=== PATIENT | male | born 1945 | race African-American/Black ===

== ENCOUNTER 2021-02-21 09:50 | Inpatient (IN) | payer MEDICARE, OTHER ==
[~2021-02-21] VITALS: Ht 193 cm; Wt 78.9 kg
[2021-02-21] MEDS ORDERED: IOHEXOL-350 100 ML BOTTLE ONE (10:17)
[2021-02-21 10:53] LABS: BASOPHILS % 1.3 % (0.0-2.0); EOSINOPHILS % 2.7 % (0.0-5.0); HEMATOCRIT. 40.1 % (42.0-52.0); HEMOGLOBIN. 13.2 g/dL (14.0-18.0); LYMPHOCYTES % 34.7 % (20.0-50.0); MEAN CORPUSCULAR VOLUME 79.1 fL (80.0-94.0); MEAN PLATELET VOLUME 9.2 fl (7.4-10.4); MONOCYTES % 7.2 % (2.0-8.0); NEUTROPHILS % 54.1 % (40.0-76.0); PLATELET 141 x1000/uL (130-400); RED BLOOD CELL COUNT 5.07 mill/uL (4.7-6.1); RED CELL DISTRIBUTION WIDTH 15.5 % (11.6-14.6)
[2021-02-21 11:00] LABS: CHLORIDE 106 mEq/L (98-107)
[2021-02-21] MEDS ORDERED: ASPIRIN 325MG EC TABLET PO ONE (11:00)
[2021-02-21] MEDS ORDERED: ONDANSETRON HCL 4MG/2ML INJ IV ONE (11:00)
[2021-02-21 11:06] LABS: ETHANOL BLOOD < 10 mg/dL
[2021-02-21 11:08] LABS: LDL CHOLESTEROL 67 mg/dL (5-100)
[2021-02-21 11:13] LABS: INR 1.1; PROTHROMBIN TIME 11.7 sec (9.6-11.0)
[2021-02-21] MEDS ORDERED: POTASSIUM CHLORIDE 20MEQ TABLET SR PO ONE (11:15)
[2021-02-21] MEDS ORDERED: DOCUSATE SODIUM 100MG CAPSULE PO PRN (13:30)
[2021-02-21] MEDS ORDERED: MAGNESIUM/ALUMINUM HYDROXIDE/SIMETHICONE 30ML UDC PO PRN (13:30)
[2021-02-21] MEDS ORDERED: ACETAMINOPHEN 325MG TABLET PO PRN (13:30)
[2021-02-21] MEDS ORDERED: NA PHOS,M-B/NA PHOS,DI-BA ENEMA 118ML PR PRN (13:30)
[2021-02-21] MEDS ORDERED: ONDANSETRON HCL 4MG/2ML INJ IV PRN (13:30)
[2021-02-21] MEDS ORDERED: GUAIFENESIN 200MG/10ML SUGAR FREE UDC PO PRN (13:30)
[2021-02-21 15:55] LABS: CLARITY URINE CLEAR (CLEAR); COLOR URINE YELLOW (YELLOW); KETONES URINE NEGATIVE (NEGATIVE); LEUKOCYTE ESTERASE URINE NEGATIVE (NEGATIVE); NITRITE URINE NEGATIVE (NEGATIVE); OCCULT BLOOD URINE NEGATIVE (NEGATIVE); PROTEIN URINE NEGATIVE (NEGATIVE); SPECIFIC GRAVITY URINE 1.078 (1.005-1.030)
[2021-02-21 16:47] LABS: *AMPHETAMINES SCREEN URINE NEGATIVE (NEGATIVE); *BARBITURATES SCREEN URINE NEGATIVE (NEGATIVE)
[2021-02-21 16:48] LABS: *BENZODIAZEPINES SCREEN URINE NEGATIVE (NEGATIVE); *COCAINE SCREEN URINE NEGATIVE (NEGATIVE); CANNABINOID URINE SCREEN NEGATIVE (NEGATIVE); OPIATES URINE SCREEN NEGATIVE (NEGATIVE); PHENCYCLIDINE URINE SCREEN NEGATIVE (NEGATIVE)
[2021-02-21 16:49] LABS: METHADONE URINE SCREEN NEGATIVE (NEGATIVE)
[2021-02-21 19:00] VITALS: BP 154/86
[2021-02-21 20:00] VITALS: BP_SYST 154; BP_SYST 180; BP_DIAS 86; BP_DIAS 98
[2021-02-21] MEDS ORDERED: DEXTROSE 50% WATER 50ML SYRINGE IV PRN (20:00)
[2021-02-21] MEDS: BLOOD SUGAR DIAGNOSTIC STRIP TEST SCH (20:31)
[2021-02-21] MEDS: INSULIN LISPRO 100 UNITS/ML SUBCUT SCH (20:31)
[2021-02-22] VITALS: BP 179/60
[2021-02-22] MEDS: CLONIDINE 0.1MG TABLET PO PRN (00:28)
[2021-02-22 04:00] VITALS: BP 141/80
[2021-02-22] MEDS: INSULIN LISPRO 100 UNITS/ML SUBCUT SCH ×4 (06:35→20:46)
[2021-02-22] MEDS: BLOOD SUGAR DIAGNOSTIC STRIP TEST SCH ×4 (06:35→20:46)
[2021-02-22 08:00] VITALS: BP 155/85
[2021-02-22 08:23] LABS: CHLORIDE 106 mEq/L (98-107)
[2021-02-22 08:40] LABS: BASOPHILS % 2.3 % (0.0-2.0); EOSINOPHILS % 3.2 % (0.0-5.0); HEMATOCRIT. 40.1 % (42.0-52.0); HEMOGLOBIN. 13.2 g/dL (14.0-18.0); LYMPHOCYTES % 46.6 % (20.0-50.0); MEAN CORPUSCULAR HEMOGLOBIN 25.9 pg (28.0-32.0); MEAN CORPUSCULAR VOLUME 78.9 fL (80.0-94.0); MEAN PLATELET VOLUME 9.5 fl (7.4-10.4); MONOCYTES % 6.4 % (2.0-8.0); NEUTROPHILS % 41.5 % (40.0-76.0); PLATELET 145 x1000/uL (130-400); RED BLOOD CELL COUNT 5.08 mill/uL (4.7-6.1); RED CELL DISTRIBUTION WIDTH 15.3 % (11.6-14.6)
[2021-02-22] MEDS: AMLODIPINE 10MG TABLET PO SCH (09:33)
[2021-02-22] MEDS: ASPIRIN 81MG EC TABLET PO SCH (09:33)
[2021-02-22] MEDS: ENOXAPARIN 40MG/0.4ML SYR SUBCUT SCH (11:58)
[2021-02-22] MEDS: LOSARTAN POTASSIUM 25 MG TABLET PO SCH (11:58)
[2021-02-22 12:00] VITALS: BP 183/83
[2021-02-22 16:00] VITALS: BP 160/76
[2021-02-22 20:00] VITALS: BP 161/79
[2021-02-23] VITALS: BP 163/84
[2021-02-23 04:00] VITALS: BP 155/80
[2021-02-23] MEDS: BLOOD SUGAR DIAGNOSTIC STRIP TEST SCH ×4 (06:21→21:38)
[2021-02-23] MEDS: INSULIN LISPRO 100 UNITS/ML SUBCUT SCH ×4 (06:22→21:00)
[2021-02-23] MEDS: LOSARTAN POTASSIUM 25 MG TABLET PO SCH (08:58)
[2021-02-23] MEDS: ASPIRIN 81MG EC TABLET PO SCH (08:58)
[2021-02-23] MEDS: AMLODIPINE 10MG TABLET PO SCH (09:01)
[2021-02-23 12:00] VITALS: BP 141/68
[2021-02-23] MEDS: HYDRALAZINE HCL 10MG TABLET PO SCH ×2 (14:20→22:01)
[2021-02-23] MEDS: ENOXAPARIN 40MG/0.4ML SYR SUBCUT SCH (14:20)
[2021-02-23 16:00] VITALS: BP 156/75
[2021-02-23 20:00] VITALS: BP_SYST 133; BP_SYST 163; BP_DIAS 111; BP_DIAS 77
[2021-02-24] VITALS: BP 158/76
[2021-02-24 04:00] VITALS: BP 152/76
[2021-02-24] MEDS: INSULIN LISPRO 100 UNITS/ML SUBCUT SCH ×4 (06:37→20:20)
[2021-02-24] MEDS: BLOOD SUGAR DIAGNOSTIC STRIP TEST SCH ×4 (06:37→20:19)
[2021-02-24] MEDS: HYDRALAZINE HCL 10MG TABLET PO SCH ×3 (06:43→21:54)
[2021-02-24 08:00] VITALS: BP 167/84
[2021-02-24] MEDS: AMLODIPINE 10MG TABLET PO SCH (08:27)
[2021-02-24] MEDS: LOSARTAN POTASSIUM 50 MG TABLET PO SCH (08:27)
[2021-02-24] MEDS: ASPIRIN 81MG EC TABLET PO SCH (08:27)
[2021-02-24] MEDS: DEXT 5%/0.9% NACL 1,000 ML IV SCH ×2 (10:26→23:06)
[2021-02-24 12:00] VITALS: BP 139/73
[2021-02-24] MEDS: ENOXAPARIN 40MG/0.4ML SYR SUBCUT SCH (12:07)
[2021-02-24 16:00] VITALS: BP 150/75
[2021-02-24 20:00] VITALS: BP 167/80
[2021-02-25] VITALS: BP 163/65
[2021-02-25] MEDS: CLONIDINE 0.1MG TABLET PO PRN (01:40)
[2021-02-25 04:00] VITALS: BP 118/58
[2021-02-25] MEDS: HYDRALAZINE HCL 10MG TABLET PO SCH ×3 (06:00→21:13)
[2021-02-25] MEDS: BLOOD SUGAR DIAGNOSTIC STRIP TEST SCH ×4 (06:08→20:18)
[2021-02-25] MEDS: INSULIN LISPRO 100 UNITS/ML SUBCUT SCH ×4 (06:13→20:18)
[2021-02-25 08:00] VITALS: BP 115/60
[2021-02-25 08:21] LABS: BASOPHILS % 0.7 % (0.0-2.0); EOSINOPHILS % 1.9 % (0.0-5.0); HEMOGLOBIN. 13.6 g/dL (14.0-18.0); LYMPHOCYTES % 29.2 % (20.0-50.0); MEAN CORPUSCULAR HEMOGLOBIN 26.4 pg (28.0-32.0); MEAN CORPUSCULAR VOLUME 79.8 fL (80.0-94.0); MEAN PLATELET VOLUME 8.9 fl (7.4-10.4); MONOCYTES % 9.2 % (2.0-8.0); PLATELET 131 x1000/uL (130-400); RED BLOOD CELL COUNT 5.14 mill/uL (4.7-6.1); RED CELL DISTRIBUTION WIDTH 15.3 % (11.6-14.6)
[2021-02-25 08:35] LABS: CHLORIDE 109 mEq/L (98-107)
[2021-02-25] MEDS: LOSARTAN POTASSIUM 50 MG TABLET PO SCH (09:44)
[2021-02-25] MEDS: ASPIRIN 81MG EC TABLET PO SCH (09:44)
[2021-02-25] MEDS: AMLODIPINE 10MG TABLET PO SCH (09:44)
[2021-02-25 12:00] VITALS: BP 131/68
[2021-02-25] MEDS: ENOXAPARIN 40MG/0.4ML SYR SUBCUT SCH (13:58)
[2021-02-25] MEDS: DEXT 5%/0.9% NACL 1,000 ML IV SCH (14:06)
[2021-02-25 16:00] VITALS: BP 171/73
[2021-02-25 20:00] VITALS: BP 158/68
[2021-02-26] VITALS (7 sets, daily range): BP systolic 129–182; BP diastolic 73–87
[2021-02-26] MEDS: CLONIDINE 0.1MG TABLET PO PRN ×3 (00:15→22:59)
[2021-02-26] MEDS: DEXT 5%/0.9% NACL 1,000 ML IV SCH ×2 (04:33→09:20)
[2021-02-26] MEDS: HYDRALAZINE HCL 10MG TABLET PO SCH ×3 (05:09→20:57)
[2021-02-26] MEDS: BLOOD SUGAR DIAGNOSTIC STRIP TEST SCH ×4 (05:46→20:53)
[2021-02-26] MEDS: INSULIN LISPRO 100 UNITS/ML SUBCUT SCH ×4 (06:18→20:53)
[2021-02-26] MEDS: ASPIRIN 81MG EC TABLET PO SCH (08:44)
[2021-02-26] MEDS: LOSARTAN POTASSIUM 50 MG TABLET PO SCH (08:44)
[2021-02-26] MEDS: AMLODIPINE 10MG TABLET PO SCH (08:44)
[2021-02-26] MEDS: ENOXAPARIN 40MG/0.4ML SYR SUBCUT SCH (12:56)
[2021-02-27] VITALS: BP 161/89
[2021-02-27 04:00] VITALS: BP 153/71
[2021-02-27] MEDS: BLOOD SUGAR DIAGNOSTIC STRIP TEST SCH ×2 (06:02→11:15)
[2021-02-27] MEDS: HYDRALAZINE HCL 10MG TABLET PO SCH (06:02)
[2021-02-27] MEDS: INSULIN LISPRO 100 UNITS/ML SUBCUT SCH ×2 (06:20→11:15)
[2021-02-27 08:00] VITALS: BP 160/72
[2021-02-27] MEDS: DEXT 5%/0.9% NACL 1,000 ML IV SCH (08:07)
[2021-02-27] MEDS: ASPIRIN 81MG EC TABLET PO SCH (08:07)
[2021-02-27] MEDS: LOSARTAN POTASSIUM 50 MG TABLET PO SCH (08:07)
[2021-02-27] MEDS: AMLODIPINE 10MG TABLET PO SCH (08:07)
[2021-02-27 12:00] VITALS: BP 161/70
[2021-02-27] MEDS: ENOXAPARIN 40MG/0.4ML SYR SUBCUT SCH (12:00)
[2021-02-27] MEDS: CLONIDINE 0.1MG TABLET PO PRN (12:22)
[2021-02-27] MEDS ORDERED: HYDRALAZINE HCL 25MG TABLET PO SCH (14:00)
[2021-02-28] MEDS ORDERED: LOSARTAN POTASSIUM 100 MG TABLET PO SCH (09:00)
== END 2021-02-27 14:05 | DRG 65 ==
LOC: ER 10:03 → 7EST 11:20 → EDBEDREQSVC 14:36 → ENRESERV 15:57 → 7EST 17:42
PROVIDERS: ADMIT Hospitalist; ATTEND Hospitalist
PROC: 4A10X4Z Monitoring of Central Nervous Electrical Activity, External Approach (ICD-10-PCS; principal; 2021-02-22)
DX: I63.9 Cerebral infarction, unspecified (principal); E44.1 Mild protein-calorie malnutrition; G81.94 Hemiplegia, unspecified affecting left nondominant side; R47.81 Slurred speech; E87.6 Hypokalemia; E11.9 Type 2 diabetes mellitus without complications; F17.200 Nicotine dependence, unspecified, uncomplicated; I10 Essential (primary) hypertension; R13.10 Dysphagia, unspecified; R29.704 NIHSS score 4; Z68.21 Body mass index [BMI] 21.0-21.9, adult
CPT/HCPCS: 36415; 70496; 70498; 70551; 71045; 80053; 80305; 80320; 81003; 82962; 83036; 83721; 84484; 85025; 92610; 93005; 93970; 95816; 97162; 97166; 97530; 99291; J1650; J1815; J2405; J7042; Q9967; G0480

== ENCOUNTER 2021-09-20 13:48 | Emergency (ER) | payer MEDICARE, OTHER, MEDICAID ==
[~2021-09-20] VITALS: Ht 193 cm; Wt 96.0 kg
[~2021-09-20 13:48] MED LIST: ACET650T37 MT; AMLO10TA80 MT; ASPI-1406 MT; DOCU-150 MT; HYDR-4134 PO; INSU100V3 SUBCUT; LOSA100T32 MT; MULT-230 MT; SENN-178 PO
[2021-09-20 16:58] LABS: BASOPHILS % 1.5 % (0.0-2.0); HEMATOCRIT. 41.7 % (42.0-52.0); HEMOGLOBIN. 13.6 g/dL (14.0-18.0); LYMPHOCYTES % 27.7 % (20.0-50.0); MEAN CORPUSCULAR HEMOGLOBIN 26.3 pg (28.0-32.0); MEAN CORPUSCULAR VOLUME 80.9 fL (80.0-94.0); MONOCYTES % 4.5 % (2.0-8.0); NEUTROPHILS % 62.3 % (40.0-76.0); PLATELET 224 x1000/uL (130-400); RED BLOOD CELL COUNT 5.15 mill/uL (4.7-6.1); RED CELL DISTRIBUTION WIDTH 14.6 % (11.6-14.6)
[2021-09-20 17:05] LABS: CHLORIDE 105 mEq/L (98-107)
[2021-09-20] MEDS ORDERED: PHEN51CR24 TP (17:39)
[2021-09-20] MEDS ORDERED: LACT1CAP78 MT (17:39)
[2021-09-20] MEDS ORDERED: POLY17PO3 MT (17:39)
[2021-09-20 21:25] VITALS: BP 156/85
== END 2021-09-20 23:13 | disposition home or self-care (01) ==
LOC: ER 13:48
DX: K62.89 Other specified diseases of anus and rectum (principal); I10 Essential (primary) hypertension; E11.9 Type 2 diabetes mellitus without complications; Z86.73 Personal history of transient ischemic attack (TIA), and cerebral infarction without residual deficits; Z79.4 Long term (current) use of insulin; Z99.3 Dependence on wheelchair; Z79.82 Long term (current) use of aspirin
CPT/HCPCS: 36415; 71045; 80053; 83880; 84484; 85025; 93005; 99285

== ENCOUNTER 2021-12-04 12:18 | Emergency (ER) | payer MEDICARE, MEDICAID ==
[~2021-12-04] VITALS: Ht 182.9 cm; Wt 78.0 kg
[~2021-12-04 12:18] MED LIST changes: +LACT1CAP78 MT; +PHEN51CR24 TP; +POLY17PO3 MT
[2021-12-04] MEDS ORDERED: ACETAMINOPHEN 325MG TABLET PO STA (13:04)
[2021-12-04] MEDS ORDERED: SODIUM CHLORIDE 0.9% 1,000 ML IV ONE (13:15)
[2021-12-04 13:32] LABS: HEMATOCRIT. 39.2 % (42.0-52.0); HEMOGLOBIN. 13.2 g/dL (14.0-18.0); MEAN CORPUSCULAR VOLUME 80.6 fL (80.0-94.0); MEAN PLATELET VOLUME 8.9 fl (7.4-10.4); PLATELET 174 x1000/uL (130-400); RED BLOOD CELL COUNT 4.87 mill/uL (4.7-6.1); RED CELL DISTRIBUTION WIDTH 16.3 % (11.6-14.6)
[2021-12-04 13:44] LABS: CHLORIDE 102 mEq/L (98-107)
[2021-12-04 13:53] LABS: CREATINE KINASE 392 IU/L (39-308); PLATELET ESTIMATE NORMAL
[2021-12-04] MEDS ORDERED: POTASSIUM CHLORIDE 20MEQ TABLET SR PO NR (15:00)
[2021-12-04 15:56] LABS: CLARITY URINE TURBID (CLEAR); COLOR URINE YELLOW (YELLOW); KETONES URINE NEGATIVE (NEGATIVE); LEUKOCYTE ESTERASE URINE 3+ (NEGATIVE); NITRITE URINE NEGATIVE (NEGATIVE); OCCULT BLOOD URINE 3+ (NEGATIVE); PH URINE 7.5 (4.5-8.0); PROTEIN URINE 2+ (NEGATIVE); SPECIFIC GRAVITY URINE 1.014 (1.005-1.030)
[2021-12-04 18:03] LABS: CLARITY URINE CLOUDY (CLEAR); COLOR URINE ORANGE (YELLOW); KETONES URINE NEGATIVE (NEGATIVE); LEUKOCYTE ESTERASE URINE 1+ (NEGATIVE); NITRITE URINE NEGATIVE (NEGATIVE); OCCULT BLOOD URINE 3+ (NEGATIVE); PROTEIN URINE 1+ (NEGATIVE); SPECIFIC GRAVITY URINE 1.013 (1.005-1.030)
[2021-12-04] MEDS ORDERED: ACETAMINOPHEN 325MG TABLET PO NR (18:15)
[2021-12-04] MEDS ORDERED: CLONIDINE 0.1MG TABLET PO ONE (18:30)
[2021-12-04] MEDS ORDERED: IBUP-2028 MT (19:02)
[2021-12-04] MEDS ORDERED: CEPH500T MT (19:02)
[2021-12-04 22:30] VITALS: BP 150/70
== END 2021-12-04 23:46 | disposition home or self-care (01) ==
LOC: ER 12:52
DX: M54.50 Low back pain, unspecified (principal); N39.0 Urinary tract infection, site not specified; E11.9 Type 2 diabetes mellitus without complications; I10 Essential (primary) hypertension; Z79.899 Other long term (current) drug therapy; Z86.73 Personal history of transient ischemic attack (TIA), and cerebral infarction without residual deficits
CPT/HCPCS: 96360; 96361; 99285; J7030; 36415; 72170; 80053; 81003; 82550; 85025; 87077; 87186; A4315

== ENCOUNTER 2022-08-16 12:38 | Inpatient (IN) | payer OTHER, MEDICAID ==
[~2022-08-16] VITALS: Ht 193 cm; Wt 70.8 kg
[~2022-08-16 12:38] MED LIST changes: +ACET-3163 MT; -ACET650T37 MT; +CEPH500T MT; +IBUP-2028 MT
[2022-08-16] MEDS ORDERED: metformin (12:43)
[2022-08-16 13:38] LABS: EOSINOPHILS % 0.4 % (0.0-5.0); HEMATOCRIT. 42.4 % (42.0-52.0); HEMOGLOBIN. 14.1 g/dL (14.0-18.0); LYMPHOCYTES % 10.5 % (20.0-50.0); MEAN CORPUSCULAR HEMOGLOBIN 27.6 pg (28.0-32.0); MEAN CORPUSCULAR VOLUME 83.1 fL (80.0-94.0); MEAN PLATELET VOLUME 9.3 fl (7.4-10.4); MONOCYTES % 5.8 % (2.0-8.0); NEUTROPHILS % 82.3 % (40.0-76.0); PLATELET 93 x1000/uL (130-400); RED CELL DISTRIBUTION WIDTH 15.8 % (11.6-14.6)
[2022-08-16 13:53] LABS: CHLORIDE 102 mEq/L (98-107)
[2022-08-16 17:07] LABS: CLARITY URINE CLOUDY (CLEAR); COLOR URINE YELLOW (YELLOW); KETONES URINE NEGATIVE (NEGATIVE); LEUKOCYTE ESTERASE URINE 3+ (NEGATIVE); NITRITE URINE POSITIVE (NEGATIVE); OCCULT BLOOD URINE 1+ (NEGATIVE); PROTEIN URINE NEGATIVE (NEGATIVE); SPECIFIC GRAVITY URINE 1.013 (1.005-1.030)
[2022-08-16] MEDS ORDERED: CEFTRIAXONE 1 G PREMIX 50 ML IV ONE (17:15)
[2022-08-17] MEDS ORDERED: ONDANSETRON HCL 4MG/2ML INJ IV PRN (08:30)
[2022-08-17] MEDS ORDERED: ACETAMINOPHEN 325MG TABLET PO PRN (08:30)
[2022-08-17] MEDS ORDERED: POTASSIUM CHLORIDE 20MEQ TABLET SR PO NR (08:45)
[2022-08-17] MEDS: AMLODIPINE 10MG TABLET PO SCH (12:23)
[2022-08-17] MEDS ORDERED: HYDRALAZINE HCL 50MG TABLET PO NR (13:30)
[2022-08-17] MEDS: TAMSULOSIN HCL 0.4MG SR CAPSULE PO SCH (13:30)
[2022-08-17] MEDS ORDERED: CEFTRIAXONE 1 G PREMIX 50 ML IV SCH (18:00)
[2022-08-17] MEDS: HYDRALAZINE HCL 50MG TABLET PO SCH (21:12)
[2022-08-17 22:10] VITALS: BP 172/88
[2022-08-18] VITALS: BP 119/71
[2022-08-18 04:00] VITALS: BP 133/58
[2022-08-18 08:00] VITALS: BP 111/59
[2022-08-18] MEDS: AMLODIPINE 10MG TABLET PO SCH (09:24)
[2022-08-18] MEDS: HYDRALAZINE HCL 50MG TABLET PO SCH ×2 (09:24→20:40)
[2022-08-18] MEDS: TAMSULOSIN HCL 0.4MG SR CAPSULE PO SCH (09:24)
[2022-08-18 12:00] VITALS: BP 111/63
[2022-08-18 16:00] VITALS: BP 120/65
[2022-08-18] MEDS ORDERED: PHENYLEPHRINE/SHK LV/MO/PET RECTAL OINTMENT 57GM PR PRN (16:00)
[2022-08-18 17:09] LABS: BASOPHILS % 1.5 % (0.0-2.0); EOSINOPHILS % 2.1 % (0.0-5.0); HEMATOCRIT. 38.8 % (42.0-52.0); HEMOGLOBIN. 12.9 g/dL (14.0-18.0); LYMPHOCYTES % 28.5 % (20.0-50.0); MEAN CORPUSCULAR HEMOGLOBIN 27.6 pg (28.0-32.0); MEAN CORPUSCULAR VOLUME 82.6 fL (80.0-94.0); MEAN PLATELET VOLUME 9.8 fl (7.4-10.4); MONOCYTES % 12.1 % (2.0-8.0); NEUTROPHILS % 55.8 % (40.0-76.0); PLATELET 100 x1000/uL (130-400); RED BLOOD CELL COUNT 4.69 mill/uL (4.7-6.1); RED CELL DISTRIBUTION WIDTH 15.4 % (11.6-14.6)
[2022-08-18 17:18] LABS: CHLORIDE 101 mEq/L (98-107)
[2022-08-18] MEDS ORDERED: CEFTRIAXONE 1,000 MG in DEXTROSE 5% WATER 50 ML IV SCH (18:00)
[2022-08-18 20:00] VITALS: BP 147/61
[2022-08-18] MEDS: NITROFURANTOIN 100MG M/M CAPSULE PO SCH (20:40)
[2022-08-19] VITALS: BP 138/70
[2022-08-19 04:00] VITALS: BP 129/68
[2022-08-19 08:00] VITALS: BP 101/65
[2022-08-19] MEDS: NITROFURANTOIN 100MG M/M CAPSULE PO SCH ×2 (08:41→21:29)
[2022-08-19] MEDS: AMLODIPINE 10MG TABLET PO SCH (08:42)
[2022-08-19] MEDS: TAMSULOSIN HCL 0.4MG SR CAPSULE PO SCH (08:42)
[2022-08-19] MEDS: HYDRALAZINE HCL 50MG TABLET PO SCH ×2 (08:43→21:29)
[2022-08-19 12:00] VITALS: BP 120/75
[2022-08-19] MEDS: CEFTRIAXONE 1,000 MG in DEXTROSE 5% WATER 50 ML IV SCH (15:54)
[2022-08-19 16:00] VITALS: BP 137/75
[2022-08-19 20:00] VITALS: BP 148/76
[2022-08-20] VITALS: BP 96/69
[2022-08-20 04:00] VITALS: BP 112/58
[2022-08-20 08:00] VITALS: BP 130/70
[2022-08-20] MEDS: AMLODIPINE 10MG TABLET PO SCH (08:50)
[2022-08-20] MEDS: NITROFURANTOIN 100MG M/M CAPSULE PO SCH ×2 (08:50→20:48)
[2022-08-20] MEDS: TAMSULOSIN HCL 0.4MG SR CAPSULE PO SCH (08:51)
[2022-08-20] MEDS: HYDRALAZINE HCL 50MG TABLET PO SCH ×2 (08:51→20:48)
[2022-08-20 12:06] VITALS: BP 121/52
[2022-08-20] MEDS: CEFTRIAXONE 1,000 MG in DEXTROSE 5% WATER 50 ML IV SCH (14:40)
[2022-08-20 16:00] VITALS: BP 109/73
[2022-08-20 20:00] VITALS: BP 143/85
[2022-08-21] VITALS: BP 151/61
[2022-08-21 04:00] VITALS: BP 156/66
[2022-08-21 08:00] VITALS: BP 173/72
[2022-08-21] MEDS: NITROFURANTOIN 100MG M/M CAPSULE PO SCH ×2 (09:04→20:44)
[2022-08-21] MEDS: TAMSULOSIN HCL 0.4MG SR CAPSULE PO SCH (09:04)
[2022-08-21] MEDS: AMLODIPINE 10MG TABLET PO SCH (09:04)
[2022-08-21] MEDS: HYDRALAZINE HCL 50MG TABLET PO SCH ×2 (09:04→20:45)
[2022-08-21 12:00] VITALS: BP 127/70
[2022-08-21] MEDS: CEFTRIAXONE 1,000 MG in DEXTROSE 5% WATER 50 ML IV SCH (14:18)
[2022-08-21 16:00] VITALS: BP 132/66
[2022-08-21 20:00] VITALS: BP 118/72
[2022-08-22] VITALS: BP 121/66
[2022-08-22 04:00] VITALS: BP 131/74
[2022-08-22 08:00] VITALS: BP 102/63
[2022-08-22] MEDS: HYDRALAZINE HCL 50MG TABLET PO SCH (08:53)
[2022-08-22] MEDS: TAMSULOSIN HCL 0.4MG SR CAPSULE PO SCH (08:54)
[2022-08-22] MEDS: AMLODIPINE 10MG TABLET PO SCH (08:54)
[2022-08-22] MEDS: NITROFURANTOIN 100MG M/M CAPSULE PO SCH (08:54)
[2022-08-22 11:45] VITALS: BP 102/63
[2022-08-22 12:00] VITALS: BP 133/69
[2022-08-22 16:00] VITALS: BP 149/83
[2022-08-22] MEDS: CEFTRIAXONE 1,000 MG in DEXTROSE 5% WATER 50 ML IV SCH (16:26)
== END 2022-08-22 19:00 | disposition home health service (06) | DRG 690 ==
LOC: ER 12:38 → MICUSO 19:44 → EDBEDREQSVC 08-17 15:27 → 8WST 08-17 22:10
PROVIDERS: ADMIT Internal Medicine; ATTEND Internal Medicine
PROC: 02HV33Z Insertion of Infusion Device into Superior Vena Cava, Percutaneous Approach (ICD-10-PCS; principal; 2022-08-19)
PROC: B548ZZA Ultrasonography of Superior Vena Cava, Guidance (ICD-10-PCS; 2022-08-19)
DX: N39.0 Urinary tract infection, site not specified (principal); E44.1 Mild protein-calorie malnutrition; Z68.1 Body mass index [BMI] 19.9 or less, adult; E87.6 Hypokalemia; E11.9 Type 2 diabetes mellitus without complications; I10 Essential (primary) hypertension; J44.9 Chronic obstructive pulmonary disease, unspecified; Z20.822 Contact with and (suspected) exposure to COVID-19; D64.9 Anemia, unspecified; N40.1 Benign prostatic hyperplasia with lower urinary tract symptoms; B95.2 Enterococcus as the cause of diseases classified elsewhere; B96.20 Unspecified Escherichia coli [E. coli] as the cause of diseases classified elsewhere; Z79.899 Other long term (current) drug therapy; Z86.73 Personal history of transient ischemic attack (TIA), and cerebral infarction without residual deficits; Z82.49 Family history of ischemic heart disease and other diseases of the circulatory system
CPT/HCPCS: 36415; 36573; 71045; 80048; 80053; 81003; 83605; 83880; 84153; 84484; 85025; 87077; 87186; 87426; 93005; 96365; 97162; 97166; 99285; J0696; J7060; G0103